=== PATIENT | male | born 1995 | race Caucasian/White ===

== ENCOUNTER 2017-08-10 22:54 | Emergency (ER) | payer BC ==
[~2017-08-10] VITALS: Ht 175.3 cm; Wt 69.4 kg
[2017-08-10 22:56] VITALS: TEMP 37; Ht 175.3 cm; Wt 69.4 kg
[2017-08-10] MEDS ORDERED: DEXT30TA7 PO (23:09)
[2017-08-10] MEDS ORDERED: ALBUT/IPRATROP 3MG/0.5MG NEB 3 ML VIAL INH STA (23:14)
[2017-08-10] MEDS ORDERED: LIDOCAINE HCL 2% VISC SOLN 20 ML UDC PO STA (23:14)
[2017-08-10] MEDS ORDERED: ALUMINUM/MAGNESIUM SUSP 30 ML UDC PO STA (23:14)
[2017-08-11 01:00] LABS: BASO % 0.1 %; BASO ABS # 0.02 K/uL (0-0.2); COMPLETE YES; EOS % 0.8 %; HEMATOCRIT 43.8 % (42-52); IG% 0.3 %; LYMPH % 12.1 %; LYMPH ABS # 1.73 K/uL (1.2-3.4); MEAN CELL VOLUME 84.6 fL (80-100); MEAN CORPUSCULAR HEMOGLOBIN 29.5 pg (25-34); MEAN CORPUSCULAR HGB CONC 34.9 g/dl (32-36); MEAN PLATELET VOLUME 10.7 fL (7.4-10.4); MONO % 8.4 %; NEUT % 78.3 %; PLATELET COUNT 250 K/uL (130-400); RED BLOOD COUNT 5.18 M/uL (4.7-6.1); WHITE BLOOD COUNT 14.33 K/uL (4.8-10.8)
[2017-08-11 01:33] LABS: BUN/CREATININE RATIO 9.7 (10-20); CALCIUM 8.9 mg/dl (8.5-10.1); CREATININE 0.99 mg/dl (0.60-1.40); POTASSIUM 3.6 mmol/L (3.5-5.1)
[2017-08-11] MEDS ORDERED: ALBUTEROL HFA 8 GM INHALER INH STA (01:59)
[2017-08-11] MEDS ORDERED: DEXAMETHASONE SOD INJ 4 MG/ML VIAL IV STA (01:59)
[2017-08-11] MEDS ORDERED: DEXAMETHASONE **PF** INJ 10 MG/ML VIAL ONE (02:02)
--- NOTE | 2017-08-11 02:05 | EMERGENCY ROOM VISIT NOTE ---
History First contact with patient: 23:03 Chief Complaint: VOMITING Stated Complaint: VOMITING, COUGHING, DRY HEAVING, MUCUS Nursing Triage Summary: Coughing a lot with vomiting for 1-1/2 weeks. Tonight was dry heaving, feels like something stuck in his throat. Reports excessive mucous/saliva. Coughing preceeds the vomiting. History of Present Illness The patient is a 21 year old male who presents to the Emergency Room with complaints of cough and congestion for the past week and a half who goes into a coughing fit and then has posttussis emesis. Patient states after he threw up today he had some throat discomfort. Patient denies chest pain, dyspnea, fever , chills, bodyaches, earache, sinus pain or congestion, abdominal pain. Patient states he is tolerating by mouth fluids and food. Review of Systems See HPI for pertinent positives & negatives. A total of 10 systems reviewed and were otherwise negative. Past Medical/Surgical History none Social History Smoking Status: Never Smoker Smokeless Tobacco Use: No Alcohol Use: none Drug Use: none Occupation Status: employed, [employer] student Current/Historical Medications Scheduled PRN Dextromethorphan-Guaifenesin (Mucinex Dm), 1 TAB PO Q12 PRN for Cough Physical Exam Vital Signs Date Time Temp Pulse Resp B/P (MAP) Pulse Ox O2 Delivery O2 Flow Rate FiO2 08/11/17 00:09 112 22 107/59 99 Room Air 08/10/17 22:56 37.0 130 20 121/80 95 Room Air Physical Exam VITALS: Vitals are noted on the nurse's note and reviewed by myself. Vital signs mildly tachycardic GENERAL:pleasant female, in no acute distress, nondiaphoretic, well-developed well-nourished. SKIN: The skin was without rashes, erythema, edema, or bruising. There is no tenting of the skin. Capillary reflex less than 2 seconds. HEAD: Normocephalic atraumatic. EARS: External auditory canals clear, tympanic membranes pearly vaz without erythema or effusion bilaterally. EYES: Pupils equal round and reactive to light and accommodation. Conjunctivae without injection, sclerae without icterus. Extraocular movements intact. NOSE: Patent, turbinates without inflammation or discharge. No sinus tenderness. MOUTH: Mucous membranes mildly dry. Pharynx without erythema or exudate. Uvula midline. Airway patent. Tongue does not deviate. NECK: Supple without nuchal rigidity. No lymphadenopathy. No thyromegaly. Cervical spine is nontender. No JVD. HEART: Tachycardic rate and rhythm without murmurs gallops or rubs. LUNGS: Mild diffuse end expiratory wheezes, without rales or rhonchi. No dullness to percussion. No retractions or accessory muscle use. ABDOMEN: Positive bowel sounds x 4. Normal tympanic percussion. Soft, nontender, without masses or organomegaly. Foley sign negative. No guarding or rebound tenderness. MUSCULOSKELETAL: No muscle atrophy, erythema, or edema noted. NEURO: Patient was alert and oriented to person place and time. Normal sensation to light and sharp touch. No focal neurological deficits. Medical Decision & Procedures Laboratory Results 08/10/17 23:28 Red Blood Count 5.18, Mean Corpuscular Volume 84.6, Mean Corpuscular Hemoglobin 29.5, Mean Corpuscular Hemoglobin Concent 34.9, Mean Platelet Volume 10.7, Neutrophils (%) (Auto) 78.3, Lymphocytes (%) (Auto) 12.1, Monocytes (%) (Auto) 8.4, Eosinophils (%) (Auto) 0.8, Basophils (%) (Auto) 0.1, Neutrophils # (Auto) 11.22, Lymphocytes # (Auto) 1.73, Monocytes # (Auto) 1.20, Eosinophils # (Auto) 0.12, Basophils # (Auto) 0.02 08/11/17 01:06 Test 08/10/17 23:28 08/11/17 01:06 White Blood Count 14.33 K/uL (4.8-10.8) Red Blood Count 5.18 M/uL (4.7-6.1) Hemoglobin 15.3 g/dL (14.0-18.0) Hematocrit 43.8 % (42-52) Mean Corpuscular Volume 84.6 fL (80-100) Mean Corpuscular Hemoglobin 29.5 pg (25-34) Mean Corpuscular Hemoglobin Concent 34.9 g/dl (32-36) Platelet Count 250 K/uL (130-400) Mean Platelet Volume 10.7 fL (7.4-10.4) Neutrophils (%) (Auto) 78.3 % Lymphocytes (%) (Auto) 12.1 % Monocytes (%) (Auto) 8.4 % Eosinophils (%) (Auto) 0.8 % Basophils (%) (Auto) 0.1 % Neutrophils # (Auto) 11.22 K/uL (1.4-6.5) Lymphocytes # (Auto) 1.73 K/uL (1.2-3.4) Monocytes # (Auto) 1.20 K/uL (0.11-0.59) Eosinophils # (Auto) 0.12 K/uL (0-0.5) Basophils # (Auto) 0.02 K/uL (0-0.2) RDW Standard Deviation 37.1 fL (36.4-46.3) RDW Coefficient of Variation 12.1 % (11.5-14.5) Immature Granulocyte % (Auto) 0.3 % Immature Granulocyte # (Auto) 0.04 K/uL (0.00-0.02) Anion Gap 8.0 mmol/L (3-11) Est Creatinine Clear Calc Drug Dose 114.9 ml/min Estimated GFR () 124.8 Estimated GFR (Non- 107.7 BUN/Creatinine Ratio 9.7 (10-20) Calcium Level 8.9 mg/dl (8.5-10.1) Medications Administered Medications (Trade) Dose Ordered Sig/Umberto Route Start Time Stop Time Status Last Admin Dose Admin Lidocaine HCl (Viscous Lidocaine 2% Soln) 10 ml NOW STAT PO 08/10/17 23:14 08/10/17 23:16 DC 08/10/17 23:34 10 ML Al Hydroxide/Mg Hydroxide (Maalox Susp) 30 ml NOW STAT PO 08/10/17 23:14 08/10/17 23:16 DC 08/10/17 23:34 30 ML Albuterol/ Ipratropium (Duoneb) 3 ml NOW STAT INH 08/10/17 23:14 08/10/17 23:16 DC 08/10/17 23:33 3 ML ED Course Prior records/ancillary studies reviewed. Triage Nursing notes reviewed. The patient's history was concerning for cough and congestion Differential diagnosis: Etiologies such as viral syndrome, otitis, pharyngitis, pneumonia, influenza, meningitis, gastritis, sepsis, bacteremia, as well as others were entertained. Physical examination: Patient is alert, interactive and tolerating fluids ER treatment provided: GI cocktail, nebulizer On reassessment the patient felt better. Diagnostics interpreted by me: The labs revealed mild leukocytosis, most likely marginalization from vomiting Imaging studies: Chest x-ray with no acute consolidation, pneumothorax or free air per my interpretation This appears to be consistent with bronchitis with posttussive emesis. Patient was tolerating fluids. He is well-appearing. He was ambulating without difficulties. He was advised to take medications as directed and to follow-up family care in a few days or here in the ER sooner for chest pain, difficulty breathing, worsening signs or symptoms or as needed. By the evaluation outlined above emergent etiologies such as otitis, pharyngitis, pneumonia, meningitis, urinary tract infection, sepsis, bacteremia, as well as others were deemed relatively unlikely. The pt informed about the findings as listed above. All questions were answered and pleased with the treatment. Return instructions were outlined and the patient was discharged in stable condition. Outpatient prescription management: Prednisone Referral: The patient was referred back to their primary care physician for follow-up in 2 to 3 days for a recheck of the current condition. Case reviewed with my attending Medical Decision As above Medication Reconcilliation Current Medication List: was personally reviewed by me Blood Pressure Screening Patient's blood pressure: Normal blood pressure Impression Primary Impression: Bronchitis Additional Impression: Post-tussive emesis Departure Information Dispostion Home / Self-Care Condition GOOD Referrals No Doctor, Assigned (PCP) Patient Instructions My [facility] Additional Instructions Acetaminophen(Tylenol) may be used for fever or pain. Use 1000mg every six hours as needed. Avoid using more than 4000mg in a 24 hour period. (AND/OR) Ibuprofen(Motrin, Advil) may be used for fever or pain. Use 600mg every six hours as needed. Take with food. Avoid using more than 2400mg in a 24 hour period. Do not use 2400mg per day for more than three consecutive days without physician direction. Prolonged inappropriate use can lead to stomach upset or ulcers. Prednisone 50mg: Once daily until the prescription is finished. It is best to take this earlier in the day as some patients note occasional difficulty falling asleep when taken in the late evening. Afrin nasal spray: 2-3 sprays to each nostril twice daily as needed for congestion. Do not use for more than 3-4 days because it can lead to worsening rebound congestion. Pseudoephedrine(Sudaphed): 30-60mg every 6 hours as needed for nasal congestion. Do not take this with other stimulant products or supplements. Albuterol Inhaler: Take 2 puffs four times daily for seven days, then as needed. Rest and drink plenty of fluids. Controlling your fever with Tylenol and Ibuprofen as above will make you feel better. Wash your hands after nose blowing, sneezing, or coughing. Most germs are spread through contact, therefore improper hygiene may result in your close contacts and loved ones becoming ill just like you. Continue current medications. Return to the ER for severe headache, neck stiffness, chest pain, difficulty breathing, fevers, vomiting, worsening of your condition, or as needed. Follow up with your primary physician this week for a recheck of your current condition. Problem Qualifiers
[2017-08-11] MEDS ORDERED: PRED50TA PO (02:06)
[2017-08-11 02:17] VITALS: BP 125/73; PULSE 90; O2SAT 95
--- NOTE | 2017-08-11 06:49 | DIAGNOSTIC IMAGING REPORT ---
CHEST 2 VIEWS ROUTINE HISTORY: 21 years-old Male cough/congestion x 10 D acute cough and congestion for 10 days COMPARISON: None available TECHNIQUE: 2 views of the chest FINDINGS: Cardiomediastinal and hilar silhouettes are within normal limits. There is no pneumothorax, pleural effusion, focal airspace consolidation or overt pulmonary edema. The bones of the chest are grossly intact. IMPRESSION: No acute cardiopulmonary process. No lobar airspace consolidation to suggest pneumonia. The above report was generated using voice recognition software. It may contain grammatical, syntax or spelling errors. Electronically signed by: Kris Britton M.D. 08/11/2017 6:48 AM Dictated Date/Time: 08/11/2017 6:47 AM
== END 2017-08-11 02:18 | disposition home or self-care (01) ==
LOC: C.EDB 22:55
DX: J40 Bronchitis, not specified as acute or chronic (principal); R11.10 Vomiting, unspecified

== ENCOUNTER 2017-08-14 05:35 | Emergency (ER) | payer BC ==
[~2017-08-14] VITALS: Ht 175.3 cm; Wt 70.3 kg
[~2017-08-14 05:35] MED LIST: DEXT30TA7 PO; PRED50TA PO
[2017-08-14 05:40] VITALS: TEMP 36.5; Ht 175.3 cm; Wt 70.3 kg
[2017-08-14] MEDS ORDERED: ALBUT/IPRATROP 3MG/0.5MG NEB 3 ML VIAL INH STA (06:02)
[2017-08-14] MEDS ORDERED: KETOROLAC TROMETHAMINE 60 MG/2 ML VIAL IM STA (06:02)
--- NOTE | 2017-08-14 06:08 | EMERGENCY ROOM VISIT NOTE ---
History Report prepared by Dee: Alexsander Hernandez Under the Supervision of: Dr. Veronica Cardenas D.O. First contact with patient: 05:42 Chief Complaint: COUGH Stated Complaint: COUGHING,GAGGING History of Present Illness The patient is a 21 year old male who presents to the Emergency Room with complaints of a persistent cough that began two weeks ago. The patient states that his cough is now causing him to "gag" and he feels the need to vomit. The cough occurs at all times of the day. He has not experienced any vomiting but is coughing up a mucous. He also complains of some discomfort when trying to swallow, but notes that this is normal at his baseline. The patient was in the emergency department a few days ago for similar symptoms. He has been taking Ibuprofen, Prednisone, and afrin nasal spray as directed from his previous ER visit. He denies smoking. The patient explains that he has a significant gag reflex at baseline. He is unable to swallow pills and his been that way since he was young. Source of History: patient Onset: Two weeks [employer] Position: chest (Respiratory) Quality: other (Cough) Timing: other (Persistent) Review of Systems See HPI for pertinent positives & negatives. A total of 10 systems reviewed and were otherwise negative. Past Medical & Surgical Patient denies any significant medical/surgical histories. Family History Patient denies any significant family histories. Social History Smoking Status: Never Smoker Alcohol Use: none Drug Use: none Occupation Status: employed, [employer] student Current/Historical Medications Scheduled Prednisone (Prednisone), 50 MG PO DAILY Scheduled PRN Dextromethorphan-Guaifenesin (Mucinex Dm), 1 TAB PO Q12 PRN for Cough Allergies Coded Allergies: Amoxicillin (Verified Allergy, Unknown, unknown, 08/10/17) Physical Exam Vital Signs Date Time Temp Pulse Resp B/P (MAP) Pulse Ox O2 Delivery O2 Flow Rate FiO2 08/14/17 06:43 89 18 141/83 94 Room Air 08/14/17 05:46 96 Room Air 08/14/17 05:40 36.5 86 20 126/85 96 Room Air Physical Exam General: Anxious appearing. The patient is losing his voice. Patient is coughing up sputum. HEENT: Head - normocephalic and atraumatic Pupils are equal, round, and reactive to light. Extraocular eye muscles are intact, and sclera are anicteric. Nose - moist nasal mucosa without discharge. Mouth - moist buccal mucosa. There is moderate post nasal drip. Ears: Left ear is impacted by cerumen. Right TM is normal. Neck: Supple; no auscultated stridor or nuchal rigidity. There is bilateral anterior cervical lymphadenopathy. Heart: Regular rate and rhythm. There is a normal S1 and S2 with no murmurs, clicks, or gallops appreciated. Lungs: There is expiratory wheezing in the lungs bilaterally, with no rales, or rhonchi. Abdomen: Soft, completely nontender, nondistended, with good bowel sounds. There are no palpable pulsatile masses or hepatosplenomegaly. There is no guarding, rigidity, or rebound noted. Extremities: No evidence of cyanosis, clubbing, or edema. There are easily palpable peripheral pulses. Skin: warm and dry with good turgor and no rashes. Medical Decision & Procedures ER Provider Diagnostic Interpretation: Radiology results as stated below per my review and the radiologist's interpretation: CHEST X-RAY: X-Ray shows no pneumothorax, no pulmonary infiltrate, no obvious consolidation. SOFT TISSUE NECK: No obvious epiglottitis or narrowing of the airway. Medications Administered Medications (Trade) Dose Ordered Sig/Umberto Route Start Time Stop Time Status Last Admin Dose Admin Albuterol/ Ipratropium (Duoneb) 3 ml NOW STAT INH 08/14/17 06:02 08/14/17 06:04 DC 08/14/17 06:27 3 ML Ketorolac Tromethamine (Toradol Inj) 60 mg NOW STAT IM 08/14/17 06:02 08/14/17 06:04 DC 08/14/17 06:27 60 MG Procedure Medications Ordered: Toradol, Duoneb. ED Course 0546: Past medical records reviewed. The patient was evaluated in room B6. A complete history and physical exam was performed. The patient went for plain film of his chest and soft tissues of his neck as described above. 0602: Ordered Toradol 60 mg IM, Duoneb 3 mL INH. 0640: I reevaluated the patient at this time. He is not wheezing anymore and his voice sounds much clearer. The patient took the duoneb well. O2 saturations were 99% while I was in the room. I discussed results with him. We had a lengthy discussion about the patient's gag reflex at baseline and his ability to take meds. He is requesting something to help dry up the mucus causing his postnasal drip. I encouraged him to take the Sudafed was recommended during his previous visit. We also spent some time talking about laryngitis and viral upper respiratory infections. Because the patient's symptoms have been ongoing now for quite some time. We will try oral antibiotics. The patient was insistent upon having a liquid antibiotic that she cannot swallow pills. The patient is in agreement with the treatment plan. He will be discharged home. Medical Decision The patient is a 21 year old male who presents to the emergency department for a persistent cough. Differential Diagnosis includes; Laryngitis, epiglottitis, URI, reactive airway disease, pneumonia. The patient presents to the emergency department with a persistent cough over the past 2 weeks and postnasal drip which is causing him to cough. The patient seems to be losing his voice. His presentation seems consistent with an acute laryngitis. He has been using Afrin nasal spray, albuterol inhaler, NyQuil, and prednisone with no significant relief of his symptoms. I encouraged the patient to continue the prednisone. We will start Zithromax over the next 5 days. He can finish the course of prednisone, uses inhaler, and take Sudafed as directed. The patient was told to return to the emergency department if he developed a high fever or worsening sore throat or difficulty swallowing. I had a lengthy conversation with the patient and his roommate who is now at the bedside. The roommate explains that the patient has significant difficulties over the past 2 years with swallowing certain types of foods depending on consistency and taste. The patient has a very limited diet. I recommended that the patient stick to a soft or liquid diet. I also encouraged him to use a cool mist humidifier in his bedroom. Medication Reconcilliation Current Medication List: was personally reviewed by me Blood Pressure Screening Patient's blood pressure: Normal blood pressure Impression Primary Impression: Laryngitis Scribe Attestation The scribe's documentation has been prepared under my direction and personally reviewed by me in its entirety. I confirm that the note above accurately reflects all work, treatment, procedures, and medical decision making performed by me. Departure Information Dispostion Home / Self-Care Referrals No Doctor, Assigned (PCP) Forms HOME CARE DOCUMENTATION FORM, IMPORTANT VISIT INFORMATION Patient Instructions My [facility] Additional Instructions Rest. Keep yourself well-hydrated. Take plenty of liquids Take a soft or liquid diet for now. Finish prednisone. You may want to take the pseudophed as directed to dry up the mucous Zithromax - 12 ml today then 6ml a day for 5 days. Return to the ER for worsening symptoms
[2017-08-14 06:43] VITALS: BP 141/83; PULSE 89; O2SAT 94
--- NOTE | 2017-08-14 07:23 | DIAGNOSTIC IMAGING REPORT ---
TWO VIEW CHEST CLINICAL HISTORY: Cough. Sore throat. FINDINGS: PA and lateral chest radiographs are compared to study dated 08/10/2017. The cardiomediastinal silhouette is unremarkable. The lungs and pleural spaces are clear. There is no pneumothorax. The bony thorax appears intact. IMPRESSION: No active disease in the chest. Electronically signed by: Brant Hermosillo M.D. 08/14/2017 7:22 AM Dictated Date/Time: 08/14/2017 7:21 AM
--- NOTE | 2017-08-14 07:53 | DIAGNOSTIC IMAGING REPORT ---
SOFT TISSUE NECK 2 VIEWS HISTORY: Cough. Sore throat. eval for airway narrowing COMPARISON: None. FINDINGS: The lung apices are clear. The trachea is midline and patent. The contours of the hypopharynx are within normal limits. Prevertebral soft tissues and the epiglottis are normal in thickness. No evidence for airway narrowing. No radiopaque foreign bodies. IMPRESSION: No significant abnormality within the neck. Electronically signed by: Raymundo Mccain M.D. 08/14/2017 7:51 AM Dictated Date/Time: 08/14/2017 7:50 AM
== END 2017-08-14 07:18 | disposition home or self-care (01) ==
LOC: C.EDB 05:36
DX: J04.0 Acute laryngitis (principal)

== ENCOUNTER 2017-09-03 03:55 | Emergency (ER) | payer OTHER, BC ==
[~2017-09-03] VITALS: Ht 175.3 cm; Wt 70.2 kg
[~2017-09-03 03:55] MED LIST changes: -PRED50TA PO
[2017-09-03 04:00] VITALS: TEMP 36.5; Ht 175.3 cm; Wt 70.2 kg
[2017-09-03] MEDS ORDERED: XYLOCAINE 1%/SOD BICARB 20 ML VIAL INFIL ONE ×2 (04:13→04:30)
--- NOTE | 2017-09-03 04:20 | EMERGENCY ROOM VISIT NOTE ---
ED Visit Note First contact with patient: 04:05 CHIEF COMPLAINT: Finger laceration HISTORY OF PRESENT ILLNESS: This 19-year-old patient presents to the emergency department after cutting the 4th middle finger on a knife at work. This is a work-related injury. The bleeding has not stopped. Denies weakness or numbness of the finger. The patient has full range of motion of the fingers. The patient rates the pain as mild and 2/10. The patient denies any other injuries. The patient's tetanus shot is up to date. REVIEW OF SYSTEMS: A 6 system review of systems was completed with positives and pertinent negatives listed in the HPI. ALLERGIES: Amoxicillin MEDICATIONS: None PMH: None SOCIAL HISTORY: No drug use PHYSICAL EXAM: Vital Signs: Reviewed Nurse's notes, vital signs stable. GENERAL : Pleasant male, in no acute distress, well developed, well nourished. SKIN: There is a 3 cm long laceration on the dorsal aspect of the left fourth finger. The edges gape apart with traction. There is no foreign material in the wound and it looks clean. There is bleeding. No deep structures such as tendons, bones, or significant blood vessels are seen in the base of the wound. Extension and flexion of the finger is full and strong. Full range of motion of the wrist and other fingers. Capillary refill less than 2 seconds. Normal sensation to light and sharp touch. EMERGENCY DEPARTMENT COURSE: I examined the patient. Using sterile technique the wound was cleansed with Betadine. 2 ml of 1% buffered lidocaine was used to perform a digital block to anesthetize the patient. The area was sterilely draped. Once the patient was anesthetized, the wound was copiously irrigated under pressure with sterile saline. The wound was explored and there were no deep structures injured. The laceration was repaired using 5 simple interrupted 5-0 nylon sutures. The patient tolerated the procedure well. Hemostasis was achieved. The area was cleaned with sterile saline and dressed with bacitracin ointment and bandage. The patient was discharged home in good condition. DIAGNOSIS: #1 Finger laceration, left fourth #2 work-related injury DISCHARGE INSTRUCTIONS & TREATMENT: Keep wound clean and dry. Do not allow any crusting or dried blood to accumulate on sutures. If this occurs, use a 1:1 solution of hydrogen peroxide/water on a Q-tip to clean the wound. Use an antibiotic ointment for 3-4 days, then let wound dry. Suture removal in 10-12 days. Return sooner for any signs of infection (increasing redness, swelling, drainage). Ice and elevate for swelling and pain. Ibuprofen 600 mg and Tylenol 500 mg every 6 hrs for pain. Keep covered when in sun until sutures removed then SPF 50 or higher for one year. Vitamin E oil if desired two weeks after suture removal for reduction of scar. Current/Historical Medications Scheduled PRN Dextromethorphan-Guaifenesin (Mucinex Dm), 1 TAB PO Q12 PRN for Cough Allergies Coded Allergies: Amoxicillin (Verified Allergy, Unknown, unknown, 08/10/17) Vital Signs Date Time Temp Pulse Resp B/P (MAP) Pulse Ox O2 Delivery O2 Flow Rate FiO2 09/03/17 04:00 36.5 94 18 113/75 96 Room Air Departure Information Referrals No Doctor, Assigned (PCP) Patient Instructions My [facility]
[2017-09-03 04:54] VITALS: BP 114/55; PULSE 90; O2SAT 98
== END 2017-09-03 04:56 | disposition home or self-care (01) ==
LOC: C.EDB 03:56
DX: S61.215A Laceration without foreign body of left ring finger without damage to nail, initial encounter (principal); W26.0XXA Contact with knife, initial encounter; Y93.89 Activity, other specified; Y92.89 Other specified places as the place of occurrence of the external cause; Y99.0 Civilian activity done for income or pay

== ENCOUNTER 2017-09-15 16:13 | Emergency (ER) | payer BC, OTHER ==
[~2017-09-15] VITALS: Ht 172.7 cm; Wt 71.5 kg
[2017-09-15 16:20] VITALS: Ht 172.7 cm; Wt 71.5 kg
[2017-09-15 16:35] VITALS: BP 111/75; PULSE 80; O2SAT 98
--- NOTE | 2017-09-15 20:47 | EMERGENCY ROOM VISIT NOTE ---
ED Visit Note First contact with patient: 16:27 CHIEF COMPLAINT: Suture removal HISTORY OF PRESENT ILLNESS: This 21-year-old male patient returns to the ED today for removal of sutures that were placed 12 days ago. There has been no swelling, redness, or drainage from the wound. The patient feels like the laceration is healing well. REVIEW OF SYSTEMS: A 6 system review of systems was completed with positives and pertinent negatives listed in the HPI. PMH: Unchanged from previous visit. ALLERGIES: Amoxicillin PHYSICAL EXAM: Vital Signs: Reviewed Nurse's notes, vital signs stable. GENERAL : White male, in no acute distress. SKIN: There is a sutured wound on the left 4th finger with no signs of infection. There is no erythema, swelling, or tenderness. EMERGENCY DEPARTMENT COURSE: 4 sutures were removed without any difficulty and there was no separation of the wound edges. The patient was discharged home in good condition. DIAGNOSIS: Healing laceration and suture removal DISCHARGE INSTRUCTIONS AND TREATMENT: Wash any remaining crusts off of the wound today and resume your normal activities. Current/Historical Medications Unable to Obtain Active Prescriptions or Reported Meds Allergies Coded Allergies: Amoxicillin (Verified Allergy, Unknown, unknown, 08/10/17) Vital Signs Date Time Temp Pulse Resp B/P (MAP) Pulse Ox O2 Delivery O2 Flow Rate FiO2 09/15/17 16:35 80 20 98 09/15/17 16:20 80 20 111/75 98 Room Air Departure Information Impression Primary Impression: Encounter for removal of sutures Dispostion Home / Self-Care Condition GOOD Prescriptions Unable to Obtain Active Prescriptions or Reported Meds Referrals No Doctor, Assigned (PCP) Forms HOME CARE DOCUMENTATION FORM, IMPORTANT VISIT INFORMATION Patient Instructions [facility] Additional Instructions Wash off any remaining debris and return to activity as tolerated.
== END 2017-09-15 16:35 | disposition home or self-care (01) ==
LOC: C.EDB 16:13 → C.EDD 16:35
DX: S61.205D Unspecified open wound of left ring finger without damage to nail, subsequent encounter (principal); X58.XXXD Exposure to other specified factors, subsequent encounter; Z48.02 Encounter for removal of sutures